=== PATIENT | female | born 1990 | race African-American/Black ===

== ENCOUNTER 2017-01-31 10:03 | Emergency (ER) | payer OTHER ==
[2017-01-31 11:29] LABS: HEMOGLOBIN 12.4 gm/dl (12.3-15.3); RED BLOOD COUNT 4.64 M/UL (4.00-5.10); WHITE BLOOD COUNT 14.1 K/UL (4.5-11.0)
[2017-01-31 11:50] LABS: BUN/CREATININE RATIO 10 (0-10)
== END 2017-01-31 15:25 | disposition home or self-care (01) ==
LOC: ER1 10:03
PROVIDERS: Physician Assistant Medical
DX: J40 Bronchitis, not specified as acute or chronic (principal); F17.210 Nicotine dependence, cigarettes, uncomplicated; Z88.0 Allergy status to penicillin
CPT/HCPCS: 36415; 71020; 80053; 81001; 84703; 85025; 86403; 87081; 87086; 87880; 96361; 96374; 99283; J1100; J2405